=== PATIENT | female | born 1980 | race Caucasian/White ===

== ENCOUNTER 2016-12-28 23:31 | Inpatient (IN) | payer OTHER ==
[~2016-12-28] VITALS: Ht 161.3 cm; Wt 75.3 kg
[~2016-12-28 23:31] MED LIST: CALCIUM VITAMIN; PREN1TAB80 PO
[2016-12-29] MEDS ORDERED: Lactated Ringer's 1,000 ML IV PRN (00:13)
[2016-12-29] MEDS ORDERED: Oxytocin 30 Units/500 mL LR 30 UNITS in IV Premix 1 EACH IV PRN ×2 (00:15→03:35)
[2016-12-29] MEDS ORDERED: Carboprost 250 mCg/mL Inj IM PRN ×2 (00:15→03:35)
[2016-12-29] MEDS ORDERED: Hemorrhage Kit, Post Partum XX ONE ×2 (00:15→03:35)
[2016-12-29] MEDS ORDERED: Oxytocin 10 Unit/mL Inj IM PRN ×2 (00:15→03:35)
[2016-12-29] MEDS ORDERED: Methylergonovine 0.2 mg/mL Inj IM PRN ×2 (00:15→03:35)
[2016-12-29] MEDS ORDERED: fentaNYL-PF 50 mCg/mL 2 mL Inj IVPUSH PRN (00:15)
[2016-12-29] MEDS ORDERED: Ondansetron 2 mg/mL 2 mL Inj IVPUSH PRN (00:15)
[2016-12-29] MEDS ORDERED: Sodium Chloride LOK Flush 10 mL Syringe IVFLUSH PRN (00:15)
[2016-12-29 00:40] LABS: Mean Corpuscular Volume 91.2 fL (81-100)
[2016-12-29] MEDS ORDERED: Lactated Ringer's 1,000 ML IV SCH (03:31)
[2016-12-29] MEDS ORDERED: HYDROcodone-APAP 5-325 mg Tablet PO PRN (03:35)
[2016-12-29] MEDS ORDERED: Benzocaine (Dermoplast) 20% 60 Gm Spray TOPICAL PRN (03:35)
[2016-12-29] MEDS ORDERED: LANOlin HPA 7 Gm Ointment TOPICAL PRN (03:35)
[2016-12-29] MEDS ORDERED: Witch Hazel-Glycerin Pads TOPICAL PRN (03:35)
--- NOTE | 2016-12-29 04:09 | OP ---
[address] [address] OPERATIVE REPORT PATIENT: SUZY EL : 1980 MR#: [id number] ADMIT: 12/28/2016 JOB ID: [id number] DATE OF SURGERY: 12/29/2016 at 3:05 a.m. SURGEON: Chung Mi MD PREOPERATIVE DIAGNOSIS(ES): This 36-year-old, G3, P2, female at 40-1/2 weeks estimated gestational age. POSTOPERATIVE DIAGNOSIS(ES): This 36-year-old, G3, P2, female at 40-1/2 weeks estimated gestational age delivered a vigorous female by normal vaginal delivery with Apgars of 8 and 8. The 's weight is unknown at this time. The patient presented to labor and delivery at about midnight. She was lady every 4 minutes and was 6 cm dilated. She progressed in the usual fashion to complete by about 2:30 a.m. She required no epidural or no other meds. She was known to be GBS negative. She pushed for about 30 minutes and delivered across an intact perineum. The placenta delivered approximately 7 minutes later spontaneously and intact with a 3-vessel cord. The estimated blood loss was 300 cc. The patient's uterus was found to be firm, her cervix intact, and her rectum intact. Counts were correct x2. There were no other complications of this delivery. The patient was in excellent condition following delivery.
[2016-12-30 06:29] LABS: Mean Corpuscular Volume 92.5 fL (81-100)
--- NOTE | 2016-12-30 08:35 | PCM.DC.OB ---
Obstetrical Discharge Summary Date of Service Dec 30, 2016 Date of hospital admission Dec 28, 2016 at 23:44 Date of Discharge: Dec 30, 2016 Providers Admitting Physician: Chung Mi MD Primary Care Physician: Chung Mi MD Attending Physician: Chung Mi MD Problems: (1) Normal spontaneous vaginal delivery Status: Acute ICD Code: O80 Consultations None Invasive procedures NVD Date of Procedure: Dec 29, 2016 Hospital Course: Presented in labor. Delivered and recovered in excellent fashion. ([calcium vitamin]) 1 TAB DAILY (Reported) Vits W-Ca,Fe,FA(<1Mg) ( Vitamins) 1 Each Tablet 1 EACH PO DAILY (Reported) Discharge Diet: No restrictions Discharge Activity-General: Pelvic Rest for 6 weeks, Activity as pain allows, Activity as energy allows, No lifting >15 pounds for 2 weeks Chung Mi MD Dec 30, 2016 08:35
--- NOTE | 2016-12-30 08:36 | PCM.DIOB ---
Obstetrical Disch Instruction Date of Service: Dec 30, 2016 Dates of Hospitalization Date of Hospital Admission Dec 28, 2016 at 23:44 Providers Admitting Physician: Chung Mi MD Primary Care Physician: Chung Mi MD Attending Physician: Chung Mi MD Discharge Diagnosis Problems: (1) Normal spontaneous vaginal delivery Status: Acute ICD Code: O80 Diet Discharge Diet: No restrictions Activity Discharge Activity-General: Pelvic Rest for 6 weeks, Balance rest and activity , Activity as pain allows, Activity as energy allows, No lifting >15 pounds for 2 weeks Dressing and Incisional Care Hygiene: May shower, Perineal care, Sitz bath, Dermoplast spray, Witch Danni pads Follow Up Plan Follow-up Provider (F9): Chung Mi MD Follow-up appointment: Weeks (8) Call your provider for: Fever or Chills, Heavy vaginal bleeding, Vaginal discomfort, Red painful breasts Chung Mi MD Dec 30, 2016 08:36
[2016-12-30 09:05] VITALS: BP 120/76; PULSE 83; RESP 18
== END 2016-12-30 10:14 | disposition home or self-care (01) | DRG 775 ==
LOC: FBCO 23:31 → FBC 23:44
PROVIDERS: ADMIT Family Medicine; ATTEND Family Medicine
PROC: 10E0XZZ Delivery of Products of Conception, External Approach (ICD-10-PCS; principal; 2016-12-29)
DX: O80 Encounter for full-term uncomplicated delivery (principal); Z3A.40 40 weeks gestation of pregnancy; Z37.0 Single live birth